=== PATIENT | male | born 1950 | race Caucasian/White ===

== ENCOUNTER 2020-07-01 13:48 | Outpatient (RCR) | payer MEDICARE, SELFPAY ==
[2020-07-01] MEDS: COVID-19 VACC, MRNA(PFIZER)/PF 30 MCG/0.3 ML SYRINGE IM (08:34)
[2020-07-22] MEDS: COVID-19 VACC, MRNA(PFIZER)/PF 30 MCG/0.3 ML SYRINGE IM (08:16)
== END 2020-09-28 23:59 ==
LOC: IMMUN 13:48
PROVIDERS: PCP Family Medicine; Visit Provider Family Medicine
DX: Z23 Encounter for immunization (principal)
CPT/HCPCS: 0001A; 0002A; 91300

== ENCOUNTER → 2024-06-12 | Outpatient (CLI) | payer MEDICARE, SELFPAY ==
--- NOTE | 2024-06-12 11:02 | COLBX_PTH ---
PATIENT: TEENA CUEVAS LOC: [facility] U#:[id number] AGE/SX: 74/M ROOM: RE06/12/[address]: Dr. Wilber Ross MD : 1950 BED: DIS: 06/12/2024 SPEC #: [id number] RECD: 06/12/24 15:28 STATUS: ALL REAndrew #: [id number] KAYODE: 06/12/24 11:[address]: Wilber Ross DEPT: SURGICAL PATHOLOGY RECD BY: Shari Saeed ENTERED: 06/13/24 07:01 SP TYPE: COLON BX OTHR DR: Dr. Eric Perea DO Tissues: Sigmoid colon biopsy Procedures: Surgery Specimen Level IV HEADER OPERATION: Colonoscopy PRE-OP DIAGNOSIS: Family history of colon cancer TISSUE SUBMITTED: Proximal sigmoid colon polyp MICROSCOPIC DIAGNOSIS Proximal sigmoid colon polyp: Inflammatory polyp. mr 06/16/2024 MICROSCOPIC DESCRIPTION Slides are reviewed. GROSS DESCRIPTION Received in fixative is one container labeled with the patient's name and designated Proximal sigmoid colon polyp. The specimen consists of a polypoid fragment of cordova tissue measuring at most 8mm in diameter. The specimen is bisected and submitted entirely in one cassette. 06/13/2024 TC:5 CPT:14718
== END | disposition home or self-care (01) ==
LOC: LABSPEC 15:42
PROVIDERS: PCP Family Medicine; Referring Provider Surgery; Visit Provider Surgery
DX: K63.5 Polyp of colon (principal)
CPT/HCPCS: 88305